=== PATIENT | male | born 1970 | race Caucasian/White ===

== ENCOUNTER 2022-03-06 11:58 | Inpatient (IN) | payer BC ==
[~2022-03-06] VITALS: Ht 182.9 cm; Wt 89.8 kg
[2022-03-06] MEDS ORDERED: ATENOLOL50 MG PO (18:43)
[2022-03-06] MEDS ORDERED: ALPRAZOLAM0.25 MG PO (18:43)
[2022-03-06] MEDS ORDERED: ZOLOFT100 MG PO (18:43)
[2022-03-06] MEDS ORDERED: CLONIDINE HCL0.1 MG PO (18:44)
[2022-03-06] MEDS ORDERED: FISH OIL 1,0001 EAC1 PO (18:45)
[2022-03-06] MEDS ORDERED: ATORVASTATIN CA20 MG PO (18:45)
[2022-03-06] MEDS ORDERED: ASPIRIN EC81 MG PO (18:46)
[2022-03-06] MEDS ORDERED: ZINC50 M1 PO (18:46)
[2022-03-06] MEDS ORDERED: PROAIR HFA8.5 GM INH (18:47)
[2022-03-06] MEDS ORDERED: HYDROCHLOROTH12.5 MG PO (18:48)
[2022-03-06] MEDS ORDERED: FENOFIBRATE160 MG PO (18:48)
[2022-03-07 06:15] LABS: HEMOGLOBIN 11.1 gm/dl (14.0-17.5); RED BLOOD COUNT 3.97 M/UL (4.20-5.50); WHITE BLOOD COUNT 8.9 K/UL (4.5-11.0)
[2022-03-07 06:43] LABS: BUN/CREATININE RATIO 14 (0-10)
[2022-03-09 06:37] LABS: RED BLOOD COUNT 4.34 M/UL (4.20-5.50)
[2022-03-09 06:38] LABS: WHITE BLOOD COUNT 6.3 K/UL (4.5-11.0)
[2022-03-09 07:31] LABS: BUN/CREATININE RATIO 11 (0-10)
[2022-03-10] MEDS ORDERED: HYDROCODON-ACE1 EAC4 PO (12:07)
[2022-03-10] MEDS ORDERED: METAMUCIL PACK3.4 GM PO (13:54)
[2022-03-10] MEDS ORDERED: AMOX TR-K CLV1 EAC4 PO (13:54)
== END 2022-03-10 15:24 | disposition home or self-care (01) | DRG 392 ==
LOC: MED SURG 4 15:22
PROVIDERS: Physician Assistant Medical; ADMIT Internal Medicine Infectious Disease
DX: K57.20 Diverticulitis of large intestine with perforation and abscess without bleeding (principal); N39.0 Urinary tract infection, site not specified; J98.11 Atelectasis; Z20.822 Contact with and (suspected) exposure to COVID-19; F17.220 Nicotine dependence, chewing tobacco, uncomplicated; I10 Essential (primary) hypertension; F41.9 Anxiety disorder, unspecified; E78.5 Hyperlipidemia, unspecified; Z98.890 Other specified postprocedural states; Z79.899 Other long term (current) drug therapy; Z80.0 Family history of malignant neoplasm of digestive organs; Z82.49 Family history of ischemic heart disease and other diseases of the circulatory system; Z83.3 Family history of diabetes mellitus
CPT/HCPCS: 36415; 80048; 80053; 83735; 85025; 85027; 85610; 87040; J2270; J2543

== ENCOUNTER 2022-04-09 23:31 | Inpatient (IN) | payer BC ==
[~2022-04-09] VITALS: Ht 182.9 cm; Wt 85.3 kg
[~2022-04-09 23:31] MED LIST: ALPRAZOLAM0.25 MG PO; AMOX TR-K CLV1 EAC4 PO; ASPIRIN EC81 MG PO; ATENOLOL50 MG PO; ATORVASTATIN CA20 MG PO; CLONIDINE HCL0.1 MG PO; FENOFIBRATE160 MG PO; FISH OIL 1,0001 EAC1 PO; HYDROCHLOROTH12.5 MG PO; HYDROCODON-ACE1 EAC4 PO; METAMUCIL PACK3.4 GM PO; PROAIR HFA8.5 GM INH; ZINC50 M1 PO; ZOLOFT100 MG PO
[2022-04-10 20:39] LABS: HEMOGLOBIN 10.8 gm/dl (14.0-17.5); RED BLOOD COUNT 3.88 M/UL (4.20-5.50); WHITE BLOOD COUNT 6.7 K/UL (4.5-11.0)
[2022-04-10 21:00] LABS: BUN/CREATININE RATIO 9 (0-10)
[2022-04-13 05:50] LABS: HEMOGLOBIN 11.1 gm/dl (14.0-17.5); WHITE BLOOD COUNT 5.1 K/UL (4.5-11.0)
[2022-04-13 06:34] LABS: BUN/CREATININE RATIO 6 (0-10)
[2022-04-13] MEDS ORDERED: AUGMENTIN 500-500 MG PO (13:13)
[2022-04-13] MEDS ORDERED: HYDROCODON-ACE1 EAC4 PO (13:13)
== END 2022-04-13 15:53 | disposition home or self-care (01) | DRG 392 ==
LOC: MED SURG 4 23:31
PROVIDERS: Surgery; ADMIT Surgery
DX: K57.80 Diverticulitis of intestine, part unspecified, with perforation and abscess without bleeding (principal); I10 Essential (primary) hypertension; E78.5 Hyperlipidemia, unspecified; Z20.822 Contact with and (suspected) exposure to COVID-19; F41.9 Anxiety disorder, unspecified; F17.210 Nicotine dependence, cigarettes, uncomplicated; Z98.890 Other specified postprocedural states; Z83.3 Family history of diabetes mellitus; Z82.49 Family history of ischemic heart disease and other diseases of the circulatory system; Z80.0 Family history of malignant neoplasm of digestive organs
CPT/HCPCS: 36415; 80048; 85025; 85610; 85730; J1650; J2270; J2543; J3480; U0002

== ENCOUNTER 2022-04-23 07:57 | Inpatient (IN) | payer BC ==
[~2022-04-23] VITALS: Ht 182.9 cm; Wt 83.9 kg
[~2022-04-23 07:57] MED LIST changes: +AUGMENTIN 500-500 MG PO
[2022-04-23 10:07] LABS: RED BLOOD COUNT 3.98 M/UL (4.20-5.50)
[2022-04-23 10:30] LABS: BUN/CREATININE RATIO 23 (0-10)
--- NOTE | 2022-04-24 14:50 | NUR ---
PATIENT TRANSPORTED TO SURGERY BY SURGERY STAFF. PATIENT IS STABLE CONDITION AT THIS TIME.
[2022-04-26 02:56] LABS: HEMOGLOBIN 10.6 gm/dl (14.0-17.5); RED BLOOD COUNT 3.88 M/UL (4.20-5.50)
[2022-04-26 03:14] LABS: WHITE BLOOD COUNT 11.7 K/UL (4.5-11.0)
[2022-04-26 03:24] LABS: BUN/CREATININE RATIO 14 (0-10)
[2022-04-27 02:56] LABS: HEMOGLOBIN 11.4 gm/dl (14.0-17.5); RED BLOOD COUNT 4.12 M/UL (4.20-5.50); WHITE BLOOD COUNT 10.8 K/UL (4.5-11.0)
[2022-04-27 03:38] LABS: BUN/CREATININE RATIO 23 (0-10)
[2022-04-28 02:58] LABS: HEMOGLOBIN 9.5 gm/dl (14.0-17.5)
[2022-04-28 03:05] LABS: RED BLOOD COUNT 3.58 M/UL (4.20-5.50); WHITE BLOOD COUNT 7.4 K/UL (4.5-11.0)
[2022-04-28 03:33] LABS: BUN/CREATININE RATIO 22 (0-10)
[2022-04-29 04:42] LABS: HEMOGLOBIN 9.4 gm/dl (14.0-17.5); RED BLOOD COUNT 3.4 M/UL (4.20-5.50); WHITE BLOOD COUNT 8.4 K/UL (4.5-11.0)
[2022-04-29 05:02] LABS: BUN/CREATININE RATIO 20 (0-10)
[2022-04-30] MEDS ORDERED: HYDROCODON-ACE1 EAC4 PO (09:59)
== END 2022-04-30 12:08 | disposition home or self-care (01) | DRG 331 ==
LOC: ER1 07:57 → CDU 13:24 → M/S 13:24
PROVIDERS: Physician Assistant; Surgery; ADMIT Surgery
PROC: 0DBN0ZZ Excision of Sigmoid Colon, Open Approach (ICD-10-PCS; principal; 2022-04-24 10:00)
DX: K57.20 Diverticulitis of large intestine with perforation and abscess without bleeding (principal); I10 Essential (primary) hypertension; E78.5 Hyperlipidemia, unspecified
CPT/HCPCS: 80048; 80053; 81001; 83605; 83690; 85025; 87040; 93005; 96374; 96375; 96376; 99285; J0690; J1100; J1170; J1650; J2001; J2250; J2270; J2370; J2405; J2543; J2704; J2710; J3010; J7030; J7120; Q9967